=== PATIENT | female | born 1960 | race Caucasian/White ===

== ENCOUNTER → 2020-02-28 | Outpatient (CLI) | payer OTHER ==
--- NOTE | 2020-03-07 09:52 | MR ---
EXAMINATION TYPE: MR brain wo/w con DATE OF EXAM: 02/28/2020 COMPARISON: Outside MRI brain November 20, 2019. HISTORY: Follow up Study. Malignant Melanoma of upper Right Limb TECHNIQUE: Multiplanar, multisequence images of the brain and brainstem is performed without and with IV contras t, utilizing 7.5 mL intravenous Gadavist . FINDINGS: Diffusion weighted images demonstrate no evidence of a recent infarct or other diffusion ab normality. There is no worrisome extra-axial fluid collection. The ventricular system and cisternal spaces are normal in size and appearance. The brain volume is age appropriate. Occasional tiny focu s of T2 hyperintensity scattered throughout the white matter bilaterally. Less than 5 tiny lesions ar e seen, for reference are 2 lesions right frontal lobe up to 3 mm in size on axial image 15. Midline structures demonstrate normal morphology. The craniocervical junction appears within normal limits. Post contrast images demonstrate no abnormal enhancement intracranially. The dural venous si nuses appear patent. The visualized sinuses are clear and the globes are intact. There is new enhancing 6 x 5 mm x 9 mm deep right parietal occipital lesion just below level of el en magnum axial image 1 series 401 corresponding to sagittal image 123 series 601. Suggestion of stacey tional small enhancing subcutaneous lesions for reference sagittal image 36 posterior upper cervical region and left parietal occipital region just below foramen magnum should be correlated clinically. IMPRESSION: Possible new subcutaneous lesions posterior upper cervical region partially imaged at and just below foramen magnum. Correlate clinically and with PET/CT. No new enhancing intracranial lesio ns to suggest intracranial melanoma metastatic disease.
--- NOTE | 2020-03-07 10:47 | CT ---
EXAMINATION TYPE: CT ChestAbdPelvis w con DATE OF EXAM: 02/28/2020 COMPARISON: None HISTORY: Melanoma CT DLP: 1885 mGycm CONTRAST: CT scan of the chest, abdomen and pelvis is performed without Oral Contrast and with IV Contrast, pat ient injected with 100 ml mL of Isovue 300. CT Chest: LUNGS: The lungs are clear and free of infiltrate or atelectasis. 3 mm subpleural nodule right upper lobe image 28. Groundglass nodular area left lower lobe measuring 1.5 cm image 37 may reflect a posti nflammatory change. Appropriate follow-up however is recommended to exclude nodule of other etiology. No pleural effusion or CT evidence of interstitial lung disease. MEDIASTINUM: Thoracic aorta is of normal caliber. The heart is not enlarged. No evidence for media stinal mass or adenopathy. HILAR STRUCTURES: No evidence for mass. No hilar adenopathy is appreciated. OTHER: Right breast nodules correlate with mammography and ultrasound. CONTRAST CT ABDOMEN AND PELVIS FINDINGS: LIVER/GB: No calcified gallstones. No space occupying hepatic lesion. Biliary tree is of normal ca liber. PANCREAS: No inflammation. No distinct mass. SPLEEN: No splenic enlargement. No lesion seen. ADRENALS: No nodule. No thickening. KIDNEYS/BLADDER: Fullness of the left renal collecting system likely in the basis of congenital left UPJ obstruction or acquired UPJ narrowing. Pelvis left-sided renal cysts noted as well. No nephrolithiasis. No distinct renal mass. Simple cyst right kidney. BOWEL: Normal appendix. Normal bowel caliber. No inflammation. GENITAL ORGANS: No gross abnormality. LYMPH NODES: No greater than 1cm abdominal or pelvic lymph nodes are appreciated. AORTA: No significant abnormality. OSSEOUS STRUCTURES: No significant abnormality is seen. OTHER: No significant additional abnormality is seen. IMPRESSION: 1. Probable postinflammatory change left lower lobe however follow-up CT is advised in 2-3 months for further evaluation and in order to exclude other processes. 2. Right breast nodularity. Correlate with ultrasound and mammography. 3. Congenital or acquired left UPJ obstruction.
== END | disposition home or self-care (01) ==
LOC: RADCTMAIN 07:45
PROVIDERS: ATTEND Internal Medicine
DX: C43.61 Malignant melanoma of right upper limb, including shoulder (principal); N63.10 Unspecified lump in the right breast, unspecified quadrant
CPT/HCPCS: 71260; 74177; 70553; A9585; Q9967

== ENCOUNTER 2020-03-09 13:08 | Emergency (ER) | payer OTHER ==
--- NOTE | 2020-03-09 14:44 | ED ---
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 Patient had a fever for about 3 days after her chemo infusion 2 weeks ago. States it was then low-grade but for the past week she has had fevers on and off. Patient had a CT of her abdomen performed a week ago that apparently showed something by her pancreas and she was told to come to the emergency Department today by her oncologist. She is feeling much better today actually but with the finding on CT they still wanted her to be evaluated.Patient has no other complaints at this time including shortness of breath, chest pain, abdominal pain, nausea or vomiting, headache, or visual changes. - Related Data Previous Rx's Medication Instructions Recorded Cephalexin [Keflex] 500 mg PO Q6HR 7 Days #28 cap 03/09/20 Allergies Allergy/AdvReac Type Severity Reaction Status Date / Time No Known Allergies Allergy Verified 03/09/20 13:17 Review of Systems ROS Statement: Those systems with pertinent positive or pertinent negative responses have been documented in the HPI. ROS Other: All systems not noted in ROS Statement are negative. Past Medical History Additional Past Medical History / Comment(s): melanoma with mets to lung and scalp dx 5 years ago. Last tx 2 weeks ago. History of Any Multi-Drug Resistant Organisms: None Reported Past Surgical History: Section Additional Past Surgical History / Comment(s): lymph nodes right axilla removed Past Psychological History: No Psychological Hx Reported Smoking Status: Never smoker Past Alcohol Use History: None Reported Past Drug Use History: None Reported General Exam Limitations: no limitations General appearance: alert, in no apparent distress Head exam: Present: atraumatic, normocephalic, normal inspection Eye exam: Present: normal appearance, PERRL, EOMI. Absent: scleral icterus, conjunctival injection, periorbital swelling ENT exam: Present: normal exam, mucous membranes moist Neck exam: Present: normal inspection, full ROM. Absent: tenderness, meningismus, lymphadenopathy Respiratory exam: Present: normal lung sounds bilaterally. Absent: respiratory distress, wheezes, rales, rhonchi, stridor Cardiovascular Exam: Present: regular rate, normal rhythm, normal heart sounds. Absent: systolic murmur, diastolic murmur, rubs, gallop, clicks GI/Abdominal exam: Present: soft, normal bowel sounds. Absent: distended, tenderness, guarding, rebound, rigid Neurological exam: Present: alert Course Vital Signs 03/09/20 03/09/20 03/09/20 13:10 16:00 18:35 Temperature 98.5 F 99.2 F 98.2 F Pulse Rate 114 H 93 87 Respiratory 18 18 17 Rate Blood Pressure 109/64 135/79 121/78 O2 Sat by Pulse 99 96 98 Oximetry - Reevaluation(s) Reevaluation #1: 03/09/20 17:17 Trying to get ahold of patient's oncologist who is out of [facility] and apparently has a office in [place]. Medical Decision Making - Medical Decision Making Vitals are stable. Patient is afebrile. She does not have any abdominal tenderness. She is well-appearing. No CVA tenderness. CBC CMP unremarkable. Patient is possibly mildly dehydrated. Urinalysis does show evidence of urinary tract infection. Was given IV antibiotics or chest x-ray showed no acute cardio pulmonary process. I reviewed patient's CT of her chest abdomen and pelvis from February 27. Patient did have a necrotic mass versus necrotic adenopathy near the pancreas. This is a patient was initially sent in as it was thought it could be a cause of her fever. I did attempt to speak with patient's oncologist Dr Fernandez through the pager number we were given. However I was unable to do so. I was able to speak with oncall oncologist for Dr Fernandez. He was able to review all of patient's records and discussed this case with me. He stated that he spoke with patient's oncologist to his recommending to treat urinary tract infection as cause of fever. He recommends patient in the hospital until we get negative blood cultures. I did discuss with the patient and she is refusing to stay. She is aware that her symptoms could get worse which could ultimately cause her to be very sick as she is immunocompromised. She still refuses and is requesting discharge on oral antibiotics. She will follow-up with her oncologist. She will return here for any worsening symptoms. I did go through patient's MRI and CT with her and her as she was very upset she had not received information from these reports as of yet. - Lab Data Result diagrams: 03/09/20 15:15 03/09/20 15:15 Lab Results 03/09/20 03/09/20 03/09/20 Range/Units 15:15 15:15 15:15 WBC 9.2 (3.8-10.6) k/uL RBC 4.28 (3.80-5.40) m/uL Hgb 11.3 L (11.4-16.0) gm/dL Hct 36.2 (34.0-46.0) % MCV 84.6 (80.0-100.0) fL MCH 26.4 (25.0-35.0) pg MCHC 31.2 (31.0-37.0) g/dL RDW 15.1 (11.5-15.5) % Plt Count 325 (150-450) k/uL Neutrophils % 77 % Lymphocytes % 11 % Monocytes % 7 % Eosinophils % 2 % Basophils % 0 % Neutrophils # 7.1 (1.3-7.7) k/uL Lymphocytes # 1.0 (1.0-4.8) k/uL Monocytes # 0.6 (0-1.0) k/uL Eosinophils # 0.2 (0-0.7) k/uL Basophils # 0.0 (0-0.2) k/uL PT 9.8 (9.0-12.0) sec INR 0.9 (<1.2) APTT 29.7 (22.0-30.0) sec Sodium (137-145) mmol/L Potassium (3.5-5.1) mmol/L Chloride (98-107) mmol/L Carbon Dioxide (22-30) mmol/L Anion Gap mmol/L BUN (7-17) mg/dL Creatinine (0.52-1.04) mg/dL Est GFR (CKD-EPI)AfAm (>60 ml/min/1.73 sqM) Est GFR (CKD-EPI)NonAf (>60 ml/min/1.73 sqM) Glucose (74-99) mg/dL Plasma Lactic Acid Ramu (0.7-2.0) mmol/L Calcium (8.4-10.2) mg/dL Total Bilirubin (0.2-1.3) mg/dL AST (14-36) U/L ALT (4-34) U/L Alkaline Phosphatase (38-126) U/L Total Protein (6.3-8.2) g/dL Albumin (3.5-5.0) g/dL Lipase (23-300) U/L Urine Color Yellow Urine Appearance Clear (Clear) Urine pH 6.0 (5.0-8.0) Ur Specific [place] 1.014 (1.001-1.035) Urine Protein 1+ H (Negative) Urine Glucose (UA) Negative (Negative) Urine Ketones Negative (Negative) Urine Blood Negative (Negative) Urine Nitrite Negative (Negative) Urine Bilirubin Negative (Negative) Urine Urobilinogen <2.0 (<2.0) mg/dL Ur Leukocyte Esterase Moderate H (Negative) Urine RBC 2 (0-5) /hpf Urine WBC 33 H (0-5) /hpf Ur Squamous Epith Cells 1 (0-4) /hpf Urine Bacteria Rare H (None) /hpf Hyaline Casts 1 (0-2) /lpf Urine Mucus Rare H (None) /hpf 03/09/20 03/09/20 03/09/20 Range/Units 15:15 15:15 15:15 WBC (3.8-10.6) k/uL RBC (3.80-5.40) m/uL Hgb (11.4-16.0) gm/dL Hct (34.0-46.0) % MCV (80.0-100.0) fL MCH (25.0-35.0) pg MCHC (31.0-37.0) g/dL RDW (11.5-15.5) % Plt Count (150-450) k/uL Neutrophils % % Lymphocytes % % Monocytes % % Eosinophils % % Basophils % % Neutrophils # (1.3-7.7) k/uL Lymphocytes # (1.0-4.8) k/uL Monocytes # (0-1.0) k/uL Eosinophils # (0-0.7) k/uL Basophils # (0-0.2) k/uL PT (9.0-12.0) sec INR (<1.2) APTT (22.0-30.0) sec Sodium 137 (137-145) mmol/L Potassium 4.9 (3.5-5.1) mmol/L Chloride 99 (98-107) mmol/L Carbon Dioxide 25 (22-30) mmol/L Anion Gap 13 mmol/L BUN 28 H (7-17) mg/dL Creatinine 1.59 H (0.52-1.04) mg/dL Est GFR (CKD-EPI)AfAm 40 (>60 ml/min/1.73 sqM) Est GFR (CKD-EPI)NonAf 35 (>60 ml/min/1.73 sqM) Glucose 113 H (74-99) mg/dL Plasma Lactic Acid Ramu 0.9 (0.7-2.0) mmol/L Calcium 9.0 (8.4-10.2) mg/dL Total Bilirubin 0.4 (0.2-1.3) mg/dL AST 25 (14-36) U/L ALT 23 (4-34) U/L Alkaline Phosphatase 117 (38-126) U/L Total Protein 7.4 (6.3-8.2) g/dL Albumin 3.9 (3.5-5.0) g/dL Lipase 195 (23-300) U/L Urine Color Urine Appearance (Clear) Urine pH (5.0-8.0) Ur Specific [place] (1.001-1.035) Urine Protein (Negative) Urine Glucose (UA) (Negative) Urine Ketones (Negative) Urine Blood (Negative) Urine Nitrite (Negative) Urine Bilirubin (Negative) Urine Urobilinogen (<2.0) mg/dL Ur Leukocyte Esterase (Negative) Urine RBC (0-5) /hpf Urine WBC (0-5) /hpf Ur Squamous Epith Cells (0-4) /hpf Urine Bacteria (None) /hpf Hyaline Casts (0-2) /lpf Urine Mucus (None) /hpf Disposition Clinical Impression: Urinary tract infection, Fever, Abdominal mass Disposition: HOME SELF-CARE Condition: Fair Instructions (If sedation given, give patient instructions): Fever in Adults (ED) Additional Instructions: If you have any recurrent fevers or any other worsening symptoms return to the emergency room. Please take antibiotic directed. Follow-up with your oncologist as soon as possible. Prescriptions: Cephalexin [Keflex] 500 mg PO Q6HR 7 Days #28 cap Is patient prescribed a controlled substance at d/c from ED?: No Referrals: Keke Fernandez DO [Primary Care Provider] - 1-2 days Time of Disposition: 18:39
--- NOTE | 2020-03-09 14:54 | XR ---
EXAMINATION TYPE: XR chest 2V DATE OF EXAM: 03/09/2020 COMPARISON: None HISTORY: 59 year-old female with fever TECHNIQUE: PA and lateral views FINDINGS: Heart normal size. Aorta and pulmonary vasculature within normal limits. Surgical clips in the right axilla. Some strandy left basilar atelectasis. No nkechi consolidation or pleural effusion. IMPRESSION: No definite acute cardiopulmonary process.
[2020-03-09] MEDS: SODIUM CHLORIDE 0.9% 500 ML 500 ML IV SCH ×2 (15:19→15:59)
[2020-03-09 15:32] LABS: Basophils % (A) 0 %; Eosinophils # (A) 0.2 k/uL (0-0.7); Eosinophils % (A) 2 %; HCT 36.2 % (34.0-46.0); HGB 11.3 gm/dL (11.4-16.0); Lymphocytes % (A) 11 %; MCH 26.4 pg (25.0-35.0); MCHC 31.2 g/dL (31.0-37.0); MCV 84.6 fL (80.0-100.0); Mean Platelet Volume 7.3; Monocytes # (A) 0.6 k/uL (0-1.0); Monocytes % (A) 7 %; Neutrophils # (A) 7.1 k/uL (1.3-7.7); Neutrophils % (A) 77 %; Platelet Count 325 k/uL (150-450); RBC 4.28 m/uL (3.80-5.40); RDW 15.1 % (11.5-15.5); WBC 9.2 k/uL (3.8-10.6)
[2020-03-09 15:39] LABS: Appearance,Urine Clear (Clear); Bacteria,Urine Rare /hpf; Bilirubin,Urine Negative (Negative); Blood,Urine Negative (Negative); Color,Urine Yellow; Glucose,Urine (UA) Negative (Negative); Hyaline Casts,Urine 1 /lpf (0-2); Ketones,Urine Negative (Negative); Leukocyte Esterase,Urine Moderate (Negative); Mucus,Urine Rare /hpf; Nitrite,Urine Negative (Negative); Protein,Urine 1+ (Negative); RBC,Urine 2 /hpf (0-5); Specific Gravity,Urine 1.014 (1.001-1.035); Squamous Epithelial Cell,Urine 1 /hpf (0-4); Urobilinogen,Urine <2.0 mg/dL (<2.0); WBC,Urine 33 /hpf (0-5)
[2020-03-09 15:42] LABS: Albumin 3.9 g/dL (3.5-5.0); Potassium 4.9 mmol/L (3.5-5.1); Total Bilirubin 0.4 mg/dL (0.2-1.3); Total Protein 7.4 g/dL (6.3-8.2)
[2020-03-09 16:14] LABS: INR 0.9 (<1.2); Partial Thromboplastin Time 29.7 sec (22.0-30.0); Prothrombin Time 9.8 sec (9.0-12.0)
[2020-03-09] MEDS ORDERED: PIPERACILLIN-TAZOBACTAM 3.375 GM in SODIUM CHLORIDE 0.9% 100 ML IVPB STA (17:05)
[2020-03-09 18:57] VITALS: BP 121/78; PULSE 87; RESP 17; TEMP 98.2
== END 2020-03-09 18:56 | disposition home or self-care (01) ==
LOC: EC 13:08
DX: N39.0 Urinary tract infection, site not specified (principal); R19.00 Intra-abdominal and pelvic swelling, mass and lump, unspecified site; Z85.820 Personal history of malignant melanoma of skin; Z85.118 Personal history of other malignant neoplasm of bronchus and lung; Z92.21 Personal history of antineoplastic chemotherapy; Z53.20 Procedure and treatment not carried out because of patient's decision for unspecified reasons
CPT/HCPCS: 96365; 96361 ×2; 99283; 36415; 80053; 83605; 83690; 85025; 85610; 85730; 81001; 87040; 87086; 71046; J2543

== ENCOUNTER → 2020-06-07 | Outpatient (CLI) | payer OTHER ==
--- NOTE | 2020-06-07 10:59 | CT ---
EXAMINATION TYPE: CT ChestAbdPelvis w con DATE OF EXAM: 06/07/2020 COMPARISON: Prior CT February 28, 2020. HISTORY: follow up right shoulder melanoma, observe for mets. Currently undergoing chemotherapy. CT DLP: 1300.9 mGycm. Automated Exposure Control for dose Reduction was Utilized. CONTRAST: CT scan of the thorax, abdomen and pelvis is performed without oral but with IV Contrast, patient injected with 100 mL of Isovue 300. FINDINGS: LUNGS: Minimal residual left basilar opacity improved from prior consistent with resolving infiltrate and/or atelectasis. Stable 3 to 4 mm subpleural nodule right mid to lower lung anteriorly axial imag e 32. MEDIASTINUM: There are no greater than 1 cm hilar or mediastinal lymph nodes. No cardiomegaly or pe ricardial effusion is seen. OTHER: Stable prominent right breast nodules presumed lymph nodes axial image 25 and 27 measuring jenna r 1 cm in size. Surgical clips redemonstrated superior to this in the right axilla. LIVER/GB: No significant abnormality is appreciated. PANCREAS: Mild generalized atrophy redemonstrated. SPLEEN: No significant abnormality is seen. ADRENALS: No significant abnormality is seen. KIDNEYS: Persistent 2.1 cm thin-walled cyst upper pole of the right kidney. Persistent symmetric or p artially uptake and excretion bilaterally. No right-sided hydronephrosis. There is stable mild-to-mod erate left-sided hydronephrosis with parapelvic cysts and extrarenal left pelvis. There is no hydrour eter. Findings are suggestive of UPJ stricture or stenosis. No significant change from prior. Stable focal right basilar mid lung linear scarring. No new greater than 4 mm nodules or masses. No pleural effusion or pneumothorax. BOWEL: Slightly suboptimal evaluation of bowel without enteric contrast. Stable small hiatal hernia. Additional smaller large bowel dilatation. GENITAL ORGANS: Anteverted uterus. LYMPH NODES: Epigastric region were showed 2 adjacent suspicious lymph nodes prior study axial image 47 now shows single larger lymph node or metastatic focus measuring 3.2 x 2.5 cm current study axial image 55. Along the greater curvature there is enlarging lobulated heterogeneous metastatic mass or a denopathy with local mass effect on current study measuring 5.9 x 5.4 cm axial image 58, in retrospec t there is 2.0 x 2.0 cm lesion axial image 46 abutting the stomach less well seen. More inferior cent ral heterogeneous mass or adenopathy anterior to the mid body pancreas measures 1.6 x 1.1 cm current study, diminished in size from prior study axial image 52. In addition there is new 2.1 x 2.1 cm mass near level of the pancreatic tail axis image 56 on current study. OSSEOUS STRUCTURES: Stable hemangioma involving the T12 vertebra. Stable nonspecific faint lucent les ions right L3 and L4 vertebra coronal image 59 and 56 respectively favored benign. OTHER: No significant additional abnormality is seen. IMPRESSION: Overall mixed response. There is a single metastatic upper to mid abdominal mass or adeno pau showing diminished size. There is however marked progression in the additional visualized uppe r abdominal lymph nodes or metastatic lesions with a new lesion in the region of pancreatic tail note d.
== END | disposition home or self-care (01) ==
LOC: RADCTMAIN 09:30
PROVIDERS: ATTEND Internal Medicine
DX: C43.61 Malignant melanoma of right upper limb, including shoulder (principal)
CPT/HCPCS: 71260; 74177; Q9967

== ENCOUNTER → 2020-06-15 | Outpatient (CLI) | payer OTHER | END | disposition home or self-care (01) | LOC: RADMRIMAIN 09:36 | PROVIDERS: ATTEND Internal Medicine | DX: Z53.9 Procedure and treatment not carried out, unspecified reason (principal) ==

== ENCOUNTER → 2020-06-16 | Outpatient (CLI) | payer OTHER ==
--- NOTE | 2020-06-16 17:05 | MR ---
EXAMINATION TYPE: MR brain wo/w con DATE OF EXAM: 06/16/2020 COMPARISON: HISTORY: Malignant neoplasm R upper limb CONTRAST: Standard multiplanar, multisequence MRI departmental protocol utilizing 10 mL intravenous Gadavist ga dolinium contrast. Ventricles and sulci appear normal. There is no mass effect nor midline shift. There is no sign of in tracranial hemorrhage. [place]-white matter structures have normal signal pattern. There is no evidence of cerebral edema. Sella turcica is normal. Corpus callosum appears normal. Brainstem appears normal. Contrast images show no pathologic enhancement. IMPRESSION: Normal MR scan of the brain. No change compared to old exam. No evidence of metastatic disease.
== END | disposition home or self-care (01) ==
LOC: RADMRIMAIN 08:48
PROVIDERS: ATTEND Internal Medicine
DX: C43.61 Malignant melanoma of right upper limb, including shoulder (principal)
CPT/HCPCS: 70553; A9585

== ENCOUNTER → 2020-11-28 | Outpatient (CLI) | payer OTHER ==
--- NOTE | 2020-11-29 08:11 | CT ---
EXAMINATION TYPE: CT ChestAbdPelvis wo con DATE OF EXAM: 11/28/2020 INDICATION: Melanoma COMPARISON: 06/07/2020 CT DLP: 1437.00 mGycm CONTRAST: Performed without Oral Contrast. No intravenous contrast. TECHNIQUE: Axial images at 5 mm thick sections. Reconstructed images in the coronal plane. Delayed images through the kidneys. FINDINGS: CT CHEST: Portion of the thyroid visualized is normal. No suspicious lung nodules or focal infiltrates are present. Small left and minimal right pleural eff usions are present. No enlarged mediastinal or hilar adenopathy is evident. The ascending aorta diameter at the level of the main pulmonary artery is 3.8 cm. The main pulmonary artery diameter at the bifurcation is 2.[address] ABDOMEN: Ascites is present. Omental caking may be present. Liver: Normal Spleen: Normal Pancreas: Normal Adrenal glands: The adrenal glands are normal. Gallbladder: Distended Kidneys: No masses are evident. No hydronephrosis is present. There is a 2.4 cm cyst superior pole right kidney. No renal stones are evident. Delayed images were obtained through the kidneys, which r emain unremarkable. Aorta: Vascular calcification is within the aorta. Inferior vena cava: Normal. CT PELVIS: Loops of bowel within the abdomen and pelvis are normal. There are loops of bowel which are incom pletely distended or lack oral contrast limiting their evaluation. Appendix: Normal as visualized. Urinary bladder: Decompressed with limited evaluation. Genitourinary structures: Uterus appears atrophic. Adnexal regions are normal. Osseous structures: No suspicious lytic or sclerotic lesions. Facet changes are in the lower lumbar s pine. Lymphadenopathy: On previous mesenteric lymph node within the epigastric region is again evident slig htly smaller than prior study currently measuring 2.8 by 2.4 cm. Previous measurement of 3.2 x 2.5 cm . Couple small lymph nodes within the celiac region. Significant periaortic or retrocaval adenopathy is not evident. No iliac chain or inguinal region lymph nodes are within the pelvis. No enlarged medi astinal adenopathy. IMPRESSIONS: 1. Interval development of ascites. Some omental caking may be present. 2. Small left and minimal right pleural effusion. 3. Previous enlarged epigastric lymph node has slightly diminished in size over the interval. No new adenopathy is evident.
== END | disposition home or self-care (01) ==
LOC: RADCTMAIN 08:58
PROVIDERS: ATTEND Internal Medicine
DX: J90 Pleural effusion, not elsewhere classified (principal); R18.8 Other ascites; R59.0 Localized enlarged lymph nodes; C43.61 Malignant melanoma of right upper limb, including shoulder
CPT/HCPCS: 36415; 71250; 74176; 82565; 84520